=== PATIENT | female | born 1995 | race Caucasian/White ===

== ENCOUNTER 2022-10-18 04:44 | Day surgery (SDC) | payer OTHER ==
[2022-10-13 15:48] VITALS: BMI 41.6
[2022-10-18] MEDS ORDERED: IBUPROFEN 600 MG TABLET (FP) PO PRN (09:10)
[2022-10-18] MEDS ORDERED: ACETAMINOPHEN 325 MG TABLET (FP) PO PRN (09:10)
[2022-10-18] MEDS ORDERED: BUPIVACAINE HCL/PF 0.5% (5MG/ML) 10 ML VIAL ONE (13:12)
[2022-10-18] MEDS ORDERED: ROCURONIUM BROMIDE 50 MG/5 ML SYRINGE ONE (13:14)
[2022-10-18] MEDS ORDERED: MIDAZOLAM HCL 2 MG/2 ML SINGLE DOSE VIAL ONE (13:14)
[2022-10-18] MEDS ORDERED: HYDROmorphone HCl 2 MG/ML VIAL ONE (13:14)
[2022-10-18] MEDS ORDERED: PROPOFOL 20 ML ONE ×2 (13:14→14:20)
[2022-10-18] MEDS ORDERED: ceFAZolin SODIUM 1 GM VIAL IVPB ONE (13:40)
[2022-10-18] MEDS ORDERED: GLYCOPYRROLATE 0.2 MG/1 ML VIAL ONE (14:36)
[2022-10-18] MEDS ORDERED: NEOSTIGMINE METHYLSULFATE 0.5 MG/1 ML - 10 ML MDV ONE (14:36)
[2022-10-18] MEDS ORDERED: KETOROLAC TROMETHAMINE 30 MG/1 ML VIAL ONE (14:43)
[2022-10-18] MEDS ORDERED: BUPIVACAINE HCL/PF 0.5% (5 MG/ML) 30 ML VIAL IJ ONE (14:45)
[2022-10-18] MEDS ORDERED: ACETAMINOPHEN INJECTION 100 ML IVPB ONE (15:25)
[2022-10-18] MEDS ORDERED: ACETAMINOPHEN 1000 MG/100 ML BAG IVPB ONE (15:46)
[2022-10-18] MEDS ORDERED: ACETAMINOPHEN 325 MG TABLET (FP) ONE (16:37)
[2022-10-18 17:05] VITALS: TEMP 98
[2022-10-18 17:09] VITALS: BP 125/73; PULSE 85; RESP 20
== END 2022-10-18 16:46 | disposition home or self-care (01) ==
LOC: JASU-SURG 04:44
PROVIDERS: ATTEND Obstetrics & Gynecology
PROC: 0UDB7ZX Extraction of Endometrium, Via Natural or Artificial Opening, Diagnostic (ICD-10-PCS; 2022-10-18)
PROC: 0UB14ZZ Excision of Left Ovary, Percutaneous Endoscopic Approach (ICD-10-PCS; principal; 2022-10-18 11:00)
DX: N83.202 Unspecified ovarian cyst, left side (principal); N93.9 Abnormal uterine and vaginal bleeding, unspecified; N92.0 Excessive and frequent menstruation with regular cycle
CPT/HCPCS: 81025; 88108; 88305-TC; 94760